=== PATIENT | female | born 1990 | race Caucasian/White ===

== ENCOUNTER → 2017-04-16 | Emergency (ER) | payer OTHER, MEDICAID ==
[2017-04-16] MEDS: ONDANSETRON 4 MG INJ IV (23:28)
[2017-04-16] MEDS: morphine 2 MG INJ IV (23:30)
[2017-04-16] MEDS: SOD CHLORIDE 0.9% IV (23:30)
[2017-04-16 23:43] LABS: Allen Test ACCEPTAB; Arterial Blood Gas Oxygen Sat 97.7 mmHG (95.0-98.0); Arterial COHb 0.2 % (0.0-3.0); Arterial Fraction of Oxyhgb 97.3 % (93.0-99.0); Arterial HCO3 26.6 mmol/L (22.0-26.0); Arterial MetHb 0.2 % (0.0-1.5); Arterial Total Hemglobin 15.2 g/dl (12.0-18.0); Arterial pCO2 41.4 mmhg (35-45); MODE ROOM AIR; Site Right Radial
[2017-04-16 23:52] LABS: ADD MAN DIFF? NO
[2017-04-16 23:55] LABS: WHITE BLOOD COUNT 7.4 10^3/ul (4.8-10.8)
[2017-04-16 23:55] LABS: BASOPHILS % 0.4 % (0.0-2.0); EOSINOPHILS # 0.1 10^3/ul (0.0-0.5); EOSINOPHILS % 0.9 % (0.0-7.0); HEMATOCRIT 41.1 % (37.0-47.0); HEMOGLOBIN 14.7 g/dl (12.0-16.0); LYMPHOCYTES # 1.9 10^3/ul (0.8-2.9); LYMPHOCYTES % 25.2 % (15.0-51.0); MEAN CORPUSCULAR HGB CONC 35.8 g/dl (32.0-37.0); MEAN CORPUSCULAR VOLUME 86.7 fl (82.0-101.0); MEAN PLATELET VOLUME 11.7 fl (7.4-10.4); MONOCYTE # 0.5 10^3/ul (0.3-0.9); MONOCYTES % 7.2 % (0.0-11.0); NEUTROPHIL # 4.9 10^3/ul (1.6-7.5); PLATELET COUNT 274 10^3/UL (140-415); RED BLOOD COUNT 4.74 10^6/ul (4.20-5.40); RED CELL DISTRIBUTION WIDTH 12.5 % (11.5-14.5)
[2017-04-17 00:14] LABS: URINE BLOOD (Dip) POC Trace-lysed (NEGATIVE); URINE KETONES (Dip) POC Negative (NEGATIVE); URINE LEUKOCYTE EST (Dip) POC Negative (NEGATIVE); URINE NITRITE (Dip) POC Negative (NEGATIVE); URINE TOTAL PROTEIN POC 1+ (NEGATIVE)
[2017-04-17 00:16] LABS: ANION GAP 15 (8-16); BLOOD UREA NITROGEN 14 mg/dl (7-20); CALCIUM 9.7 mg/dl (8.4-10.2); CARBON DIOXIDE 30 mmol/L (21-31); CHLORIDE 96 mmol/L (97-110); CREATININE 0.52 mg/dl (0.44-1.00); GLUCOSE 345 mg/dl (70-220); MAGNESIUM 1.8 mg/dl (1.7-2.5); PHOSPHORUS 4.2 mg/dl (2.5-4.9); POTASSIUM 3.6 mmol/L (3.5-5.1); SODIUM 137 mmol/L (135-144)
[2017-04-17 00:43] LABS: LACTIC ACID 1.5 mmol/L (0.5-2.0)
[2017-04-17] MEDS: KETOROLAC 30 MG INJ IV (01:36)
== END | disposition home or self-care (01) ==
LOC: FTE 19:08
DX: E11.65 Type 2 diabetes mellitus with hyperglycemia (principal); Z79.4 Long term (current) use of insulin
CPT/HCPCS: 36415; 36600; 71045; 76705; 80048; 81003; 82803; 82962; 83605; 83735; 84100; 85025; 96374; 96375; 99285-25

== ENCOUNTER 2017-06-03 10:40 | Emergency (ER) | payer OTHER ==
[2017-06-03] MEDS: HYDROCODONE/APAP (5/325) TAB PO (11:27)
[2017-06-03] MEDS: ONDANSETRON 4 MG INJ IV (12:10)
[2017-06-03] MEDS: morphine 4 MG/ML VIAL IV (12:10)
[2017-06-03] MEDS: SOD CHLORIDE 0.9% 1,000 ML IV (12:10)
[2017-06-03 12:29] LABS: ADD MAN DIFF? NO
[2017-06-03 12:37] LABS: WHITE BLOOD COUNT 11.2 10^3/ul (4.8-10.8)
[2017-06-03 12:37] LABS: BASOPHILS % 0.4 % (0.0-2.0); EOSINOPHILS % 0.3 % (0.0-7.0); HEMOGLOBIN 15.3 g/dl (12.0-16.0); LYMPHOCYTES # 1.9 10^3/ul (0.8-2.9); LYMPHOCYTES % 16.5 % (15.0-51.0); MEAN CORPUSCULAR HEMOGLOBIN 29.9 pg (29.0-33.0); MEAN CORPUSCULAR HGB CONC 34.8 g/dl (32.0-37.0); MEAN CORPUSCULAR VOLUME 86.1 fl (82.0-101.0); MEAN PLATELET VOLUME 11.8 fl (7.4-10.4); MONOCYTE # 0.7 10^3/ul (0.3-0.9); MONOCYTES % 6.3 % (0.0-11.0); NEUTROPHIL # 8.5 10^3/ul (1.6-7.5); NEUTROPHILS % 76.1 % (39.0-77.0); PLATELET COUNT 279 10^3/UL (140-415); RED BLOOD COUNT 5.11 10^6/ul (4.20-5.40); RED CELL DISTRIBUTION WIDTH 12.5 % (11.5-14.5)
[2017-06-03 12:55] LABS: ANION GAP 18 (8-16); BLOOD UREA NITROGEN 14 mg/dl (7-20); CARBON DIOXIDE 28 mmol/L (21-31); CHLORIDE 99 mmol/L (97-110); CREATININE 0.45 mg/dl (0.44-1.00); GLUCOSE 390 mg/dl (70-220); SODIUM 141 mmol/L (135-144)
== END 2017-06-03 15:31 | disposition home or self-care (01) ==
LOC: FTE 10:40
DX: S82.045A Nondisplaced comminuted fracture of left patella, initial encounter for closed fracture (principal); E11.9 Type 2 diabetes mellitus without complications; W01.0XXA Fall on same level from slipping, tripping and stumbling without subsequent striking against object, initial encounter; Y92.9 Unspecified place or not applicable; Z79.4 Long term (current) use of insulin
CPT/HCPCS: 29505; 36415; 73550; 73562; 73706; 80048; 85025; 96374; 96375; 99285-25

== ENCOUNTER 2017-06-29 11:32 | Emergency (ER) | payer OTHER ==
[2017-06-29 12:10] LABS: MODE ROOM AIR; MetHgb Venous 1.4 %; Sample Type Blood venous; Site VENOUS LINE; Venous COHb 0.1 %; Venous Fraction OxyHgb 31.9 %; Venous Oxygen Sat 32.4 mmHG (55.0-75.0); Venous Total Hemglobin 15.3 g/dl
[2017-06-29 12:14] LABS: ADD MAN DIFF? NO; BASOPHILS % 0.1 % (0.0-2.0); EOSINOPHILS # 0.1 10^3/ul (0.0-0.5); EOSINOPHILS % 0.9 % (0.0-7.0); HEMATOCRIT 40.5 % (37.0-47.0); HEMOGLOBIN 14.4 g/dl (12.0-16.0); LYMPHOCYTES # 1.6 10^3/ul (0.8-2.9); LYMPHOCYTES % 23.5 % (15.0-51.0); MEAN CORPUSCULAR HGB CONC 35.6 g/dl (32.0-37.0); MEAN CORPUSCULAR VOLUME 84.4 fl (82.0-101.0); MEAN PLATELET VOLUME 12.5 fl (7.4-10.4); MONOCYTE # 0.4 10^3/ul (0.3-0.9); NEUTROPHIL # 4.8 10^3/ul (1.6-7.5); NEUTROPHILS % 69.2 % (39.0-77.0); PLATELET COUNT 225 10^3/UL (140-415); RED CELL DISTRIBUTION WIDTH 11.6 % (11.5-14.5)
[2017-06-29 12:14] LABS: WHITE BLOOD COUNT 6.9 10^3/ul (4.8-10.8)
[2017-06-29] MEDS: SOD CHLORIDE 0.9% 1,000 ML IV (12:26)
[2017-06-29] MEDS: ONDANSETRON 4 MG INJ IV (12:26)
[2017-06-29] MEDS: morphine 4 MG/ML VIAL IV (12:26)
[2017-06-29 12:41] LABS: ANION GAP 16 (8-16); BLOOD UREA NITROGEN 17 mg/dl (7-20); CALCIUM 9.9 mg/dl (8.4-10.2); CARBON DIOXIDE 27 mmol/L (21-31); CHLORIDE 99 mmol/L (97-110); CREATININE 0.42 mg/dl (0.44-1.00); GLUCOSE 325 mg/dl (70-220); POTASSIUM 4.1 mmol/L (3.5-5.1); SODIUM 138 mmol/L (135-144)
[2017-06-29] MEDS: SOD CHLORIDE 0.9% 100 ML (14:41)
[2017-06-29] MEDS: IOHEXOL 100 ML (14:41)
== END 2017-06-29 17:43 | disposition home or self-care (01) ==
LOC: E/R 11:32
DX: E10.65 Type 1 diabetes mellitus with hyperglycemia (principal); S82.002D Unspecified fracture of left patella, subsequent encounter for closed fracture with routine healing; X58.XXXD Exposure to other specified factors, subsequent encounter; Z79.4 Long term (current) use of insulin
CPT/HCPCS: 36415; 73706; 80048; 81025; 82803; 82962; 85025; 93971; 96374; 96375; 99285-25